=== PATIENT | female | born 1930 | race Caucasian/White ===

== ENCOUNTER 2016-08-31 07:55 | Outpatient (CLI) | payer MEDICARE, OTHER | END 2016-08-31 07:56 | disposition home or self-care (01) | DX: I10 Essential (primary) hypertension (principal); N28.9 Disorder of kidney and ureter, unspecified; E78.5 Hyperlipidemia, unspecified ==

== ENCOUNTER → 2017-01-11 | Outpatient (CLI) | payer MEDICARE, OTHER | LOC: LAB.WCP 08:00 | PROVIDERS: ATTEND Family Medicine | DX: R35.0 Frequency of micturition (principal) | CPT/HCPCS: 87077; 87086 ==

== ENCOUNTER 2017-02-08 08:06 | Outpatient (CLI) | payer MEDICARE, OTHER ==
[2017-02-08 13:11] LABS: BASOPHILS # (AUTO) 0.1 10^3/uL (0.0-0.1); BASOPHILS % (AUTO) 0.7 %; EOSINOPHILS # (AUTO) 0.1 10^3/uL (0.0-0.7); EOSINOPHILS % (AUTO) 1.7 %; HCT - HEMATOCRIT 33.5 % (37.0-47.0); HGB - HEMOGLOBIN 11.4 g/dL (12.0-16.0); LYMPHOCYTES # (AUTO) 2.2 10^3/uL (1.5-3.5); LYMPHOCYTES % (AUTO) 28.7 %; MEAN CORPUSCULAR HEMOGLOBIN 32.8 pg (27.0-31.0); MEAN CORPUSCULAR HGB CONC 34.1 g/dL (32.0-36.0); MEAN CORPUSCULAR VOLUME 96.3 fL (81.0-99.0); MEAN PLATELET VOLUME 8.7 fL (7.9-10.8); MONOCYTES # (AUTO) 0.8 10^3/uL (0.0-1.0); MONOCYTES % (AUTO) 10.4 %; NEUTROPHILS # (AUTO) 4.5 10^3/uL (1.5-6.6); NEUTROPHILS % (AUTO) 58.5 %; RED BLOOD COUNT 3.48 10^6/uL (4.20-5.40); RED CELL DISTRIBUTION WIDTH 11.9 % (12.0-15.0); UNCORRECTED WHITE BLOOD COUNT 7.7 x10^3/uL; WHITE BLOOD COUNT 7.7 x10^3/uL (4.8-10.8)
[2017-02-08 13:22] LABS: ALBUMIN/GLOBULIN RATIO 1.2 (1.0-2.2); BILIRUBIN,TOTAL 0.4 mg/dL (0.2-1.0); BUN - BLOOD UREA NITROGEN 28 mg/dL (6-20); CALCIUM 9.1 mg/dL (8.5-10.3); CARBON DIOXIDE - CO2 26 mmol/L (21-32); CHLORIDE 99 mmol/L (101-111); CHOL/HDL RATIO 2.6 (<4.4); CHOLESTEROL 202 mg/dL; CREATININE 1.8 mg/dL (0.4-1.0); GFR - MDRD 27 (>89); GLUCOSE 107 mg/dL (70-100); HDL CHOLESTEROL 77 mg/dL; LDL/HDL RATIO 1.2 (<4.4); POTASSIUM 3.6 mmol/L (3.5-5.0); SODIUM 136 mmol/L (135-145); TOTAL PROTEIN 7.6 g/dL (6.7-8.2); TRIGLYCERIDES 161 mg/dL; VLDL CHOLESTEROL 32 mg/dL
== END 2017-02-08 08:07 | disposition home or self-care (01) ==
LOC: LAB.WCP 08:06
PROVIDERS: ATTEND Family Medicine
DX: I10 Essential (primary) hypertension (principal); N28.9 Disorder of kidney and ureter, unspecified; E78.5 Hyperlipidemia, unspecified
CPT/HCPCS: 36415; 80053; 80061; 85025

== ENCOUNTER 2017-02-27 13:00 | Outpatient (CLI) | payer MEDICARE, OTHER ==
[2017-02-27 19:15] LABS: CALCIUM 9.3 mg/dL (8.5-10.3); CREATININE 1.6 mg/dL (0.4-1.0); POTASSIUM 3.7 mmol/L (3.5-5.0)
== END 2017-02-27 13:01 | disposition home or self-care (01) ==
LOC: LAB.WCP 13:00
PROVIDERS: ATTEND Family Medicine
DX: N28.9 Disorder of kidney and ureter, unspecified (principal)
CPT/HCPCS: 36415; 80048

== ENCOUNTER 2018-01-16 08:27 | Outpatient (CLI) | payer MEDICARE, OTHER ==
[2018-01-16 13:18] LABS: BASOPHILS % (AUTO) 0.4 %; EOSINOPHILS # (AUTO) 0.1 10^3/uL (0.0-0.7); EOSINOPHILS % (AUTO) 1.5 %; HGB - HEMOGLOBIN 11.7 g/dL (12.0-16.0); LYMPHOCYTES # (AUTO) 2.2 10^3/uL (1.5-3.5); LYMPHOCYTES % (AUTO) 30.9 %; MEAN CORPUSCULAR HEMOGLOBIN 33.1 pg (27.0-31.0); MEAN CORPUSCULAR VOLUME 100.4 fL (81.0-99.0); MONOCYTES # (AUTO) 0.6 10^3/uL (0.0-1.0); MONOCYTES % (AUTO) 8.2 %; NEUTROPHILS # (AUTO) 4.2 10^3/uL (1.5-6.6); PLT - PLATELET COUNT 237 10^3/uL (130-450); RED BLOOD COUNT 3.52 10^6/uL (4.20-5.40); WHITE BLOOD COUNT 7.1 x10^3/uL (4.8-10.8)
[2018-01-16 13:43] LABS: HB2 TOTAL 12.3 g/dL; HEMOGLOBIN A1C 0.44 g/dL; HEMOGLOBIN A1C % 5.4 % (4.6-6.2)
[2018-01-16 13:59] LABS: ALBUMIN 3.7 g/dL (3.2-5.5); ALKALINE PHOSPHATASE 53 IU/L (42-121); ALT ALANINE AMINOTRANSFERASE 30 IU/L (10-60); AST ASPARTATE AMINOTRANSFERASE 40 IU/L (10-42); BILIRUBIN,TOTAL 0.5 mg/dL (0.2-1.0); BUN - BLOOD UREA NITROGEN 35 mg/dL (6-20); CALCIUM 9.5 mg/dL (8.5-10.3); CARBON DIOXIDE - CO2 27 mmol/L (21-32); CHLORIDE 105 mmol/L (101-111); CHOL/HDL RATIO 2.3 (<4.4); CHOLESTEROL 192 mg/dL; CREATININE 1.6 mg/dL (0.4-1.0); GFR - MDRD 30 (>89); GLUCOSE 103 mg/dL (70-100); HDL CHOLESTEROL 84 mg/dL; LDL CHOLESTEROL,CALCULATED 86 mg/dL; SODIUM 139 mmol/L (135-145); TOTAL PROTEIN 7.4 g/dL (6.7-8.2); VLDL CHOLESTEROL 22 mg/dL
== END 2018-01-16 08:28 | disposition home or self-care (01) ==
LOC: LAB.WCP 08:27
PROVIDERS: ATTEND Family Medicine
DX: I10 Essential (primary) hypertension (principal); E78.5 Hyperlipidemia, unspecified; R73.01 Impaired fasting glucose; N28.9 Disorder of kidney and ureter, unspecified; K21.9 Gastro-esophageal reflux disease without esophagitis
CPT/HCPCS: 36415; 80053; 80061; 83036; 83721; 84443; 85025